=== PATIENT | female | born 1970 | race African-American/Black ===

== ENCOUNTER 2025-01-11 15:26 | Inpatient (IN) | payer OTHER ==
[~2025-01-11] VITALS: Ht 160 cm; Wt 88.5 kg
--- NOTE | 2025-01-11 15:35 | ECG ---
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
--- NOTE | 2025-01-11 15:36 | ED.PDOC ---
HPI Comments lively: HPI: Poor Historian. Patient points to her left mid axillary line chest discomfort wrapping around the ribcage and under her left breast. Pain was sudden constant. No significant associated symptoms. Past Medical History: Past Surgical History: 54y F who presents to the ED for chief complaint of chest pain - pt states she has been having chest pain for the past 1x hours - pt states she has been having L sided chest pain radiating to the L lower zeus k, with associated nausea and no exacerbating or relieving factors - pt states the pain came on suddenly and states she was resting when the pain started - pt denies any associated injury or fall and denies any chest pain symptoms - pt states she exercises daily but states she was exercising more heavily today - pt states she had normal cardiac stress test 2 years prior when she 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 HEAD: Denies acute: headache, photophobia Eyes: Denies acute: Double vision, vision loss, eye pain, eye discharge. EARS: Denies acute: tinnitus, hearing loss, ear discharge, ear pain, THROAT: Denies acute: sore throat, swelling, difficulty swallowing , pain with swallo wing, change in voice. NECK: Denies acute: neck pain, neck swelling, stiff neck. HEART: Denies acute : , palpitations, LUNGS: Denies acute: SOB, wheezing, cough, hemoptysis ABDOMEN: Denies acute: abdominal pain, Nausea, Vomiting, diarrhea, melena , hematemesis, hematochezia SKIN: Denies acute: rash, redness, lesions, itchiness. EXTREMITIES: Denies acute: calf pain, numbness, tingling, weakness, denies pain in extremity. Denies acute: Low back pain. Neuro: Denies acute: focal neurological deficit, motor or sensory focal neurological deficit, tremors, seizure like activity, confusion, dizziness, change in mental status, loss of bowel or bladder function, cauda equina like symptoms. : Denies acute: dysuria, hematuria, flank pain, increase in urinary frequency. PSYCH: Denies acute: hallucination, suicidal ideation, homicidal ideation. FEMALE: Denies acute: abnormal vaginal bleeding, foul odor, unusual discharge. PHYSICAL EXAM: General: ----mild to moderate----acute distress, awake and alert. Head: normocephalic, atraumatic. Neck: supple, trachea is midline, no swelling. Throat: Normal phonation. Eyes:, no erythema, no purulent discharge, no proptosis, no icterus. Heart: regular rate, regular rhythm, no significant murmur appreciated. Lungs: no apparent respiratory distress, Able to speak in full sentences. No wheezing, no rhonchi, no crackles. No stridors Clear to auscultation bilaterally. Abdomen: non tender to palpation, non distended, soft, no guarding, no rebound, + bowel sounds. Patient of the area of pain. Patient points specifically to her posterior midthoracic area on the left side of her ribcage wrapping around to her left mid axillary line. There is no swelling or crepitus appreciated not exam. No significant tenderness to palpation in that area. She states that the pain she feels is inside. Neuro: Awake, Alert, oriented to name, self, situation, follows commands GCS=15. Speech is normal. Skin: no petechia, no purpura, no cyanosis, non-pale, not jaundice. Lower extremities: --no - Pitting edema no deformity, no focal swelling, no calf TTP. Makes eye contact. moves all four extremities. Face: no apparent facial droop. Ambulating in the ED independently. ED COURSE: DISCLAIMER: This medical document was created using an electronic medical record system with voice recognition software and computerized dictation system. Although this document has been carefully reviewed, there might still be some phonetic and typographical errors. Occasional wrong-word or "sound-alike" substitutions may have occurred due to the inherent limitations of voice recognition software. These areas are purely typographical due to imperfections of the software programs and do not reflect any compromise in the patient's medical care. Please read the chart carefully and recognize, using context, where these substitutions have occurred. Time Seen by MD: 15:28 Reviewed Notes: Medications, Allergies Allergies: Coded Allergies: [place] (Verified Allergy, Unknown, 01/11/25) Information Source: Patient Mode of Arrival: Ambulatory EKG EKG : Pulse Rate (adult): 92 [place]: Normal Cardiac Rhythm: NSR Block: None Hypertrophy: None ST: Normal Was a procedure done? Was a procedure done?: No X-Ray, Labs, Meds, VS Vital Signs Date Time Temp Pulse Resp B/P (MAP) Pulse Ox O2 Delivery O2 Flow Rate FiO2 01/11/25 17:10 65 01/11/25 16:45 65 20 96 Room Air* 0 21 01/11/25 16:37 87 01/11/25 16:31 131/91 01/11/25 16:26 92 01/11/25 16:20 98.1 77 18 131/91 (104) 97 98.1 01/11/25 16:20 77 01/11/25 15:33 92 01/11/25 15:30 98.3 93 18 144/90 (108) 100 98.3 Lab Test 01/11/25 17:07 01/11/25 16:45 01/11/25 15:38 01/11/25 15:34 Range/Units B-Type Natriuretic Peptide 11.60 0-100 pg/mL Troponin I High Sensitivity 8 8 </=34 ng/L Urine Color Light-yellow Yellow Urine Clarity Clear Clear Urine pH 6.5 5.0-9.0 Urine Specific [place] 1.014 1.001-1.035 Urine Protein Negative Negative Urine Ketones Negative Negative Urine Blood Negative Negative /uL Urine Nitrite Negative Negative Urine Bilirubin Negative Negative Urine Urobilinogen Normal Negative mg/dL Urine Leukocyte Esterase Negative Negative /uL Urine RBC 1 0 - 4 /hpf Urine Microscopic WBC 1 0-5 /HPF Urine Squamous Epithelial Cells Few <5 /hpf Urine Bacteria Few H None Seen /hpf Urine Glucose Normal Normal mg/dL Urine Opiates Screen Neg NEGATIVE Urine Fentanyl Screen Neg NEGATIVE Urine Barbiturates Screen Neg NEGATIVE Urine Phencyclidine Screen Neg NEGATIVE Urine Amphetamines Screen Neg NEGATIVE Urine Benzodiazepines Screen Neg NEGATIVE Urine Cocaine Screen Neg NEGATIVE Urine Cannabinoids Screen Neg NEGATIVE White Blood Count 9.5 4.4-10.8 10^3/uL Red Blood Count 4.33 4.0-5.20 10^6/uL Hemoglobin 13.3 12.2-16.2 g/dL Hematocrit 39.7 36.0-46.0 % Mean Corpuscular Volume 91.7 80.0-100.0 fL Mean Corpuscular Hemoglobin 30.7 28.0-32.0 pg Mean Corpuscular Hemoglobin Concent 33.4 32.0-36.0 g/dL Red Cell Distribution Width 13.6 11.8-14.3 % Platelet Count 359 140-450 10^3/uL Mean Platelet Volume 6.9 6.9-10.8 fL Neutrophils (%) (Auto) 46.9 37.0-80.0 % Lymphocytes (%) (Auto) 41.6 10.0-50.0 % Monocytes (%) (Auto) 9.4 0.0-12.0 % Eosinophils (%) (Auto) 1.0 0.0-7.0 % Basophils (%) (Auto) 1.1 0.0-2.0 % Neutrophils # (Auto) 4.4 1.6-8.6 10 ^3/uL Lymphocytes # (Auto) 3.9 0.4-5.4 10 ^3/uL Monocytes # (Auto) 0.9 0-1.3 10 ^3/uL Eosinophils # (Auto) 0.1 0-0.8 10 ^3/uL Basophils # (Auto) 0.1 0-0.2 10 ^3/uL Nucleated Red Blood Cells 0.2 % D-Dimer, Quantitative 0.20 0.0-0.49 mg/L FEU Sodium Level 144 136-145 mmol/L Potassium Level 3.9 3.5-5.1 mmol/L Chloride Level 108 H 98-107 mmol/L Carbon Dioxide Level 25 20-31 mmol/L Anion Gap 11 5-15 Blood Urea Nitrogen 18 9-23 mg/dL Creatinine 0.94 0.550-1.02 mg/dL Glomerular Filtration Rate Calc 71 >90 mL/min BUN/Creatinine Ratio 19.1 10.0-20.0 Serum Glucose 80 74-106 mg/dL Calcium Level 10.9 H 8.7-10.4 mg/dL Total Bilirubin 0.5 0.2-1.0 mg/dL Aspartate Amino Transferase (AST) 18 <34 U/L Alanine Aminotransferase (ALT) 9 7-40 U/L Alkaline Phosphatase 61 46-116 U/L Creatine Kinase 135 34-145 U/L Total Protein 7.5 5.7-8.2 g/dL Albumin 4.8 3.2-4.8 g/dL Current Medications Medications (Trade) Dose Ordered Sig/[place] Route Start Time Stop Time Status Last Admin Aspirin 325 mg ONCE ONCE PO 01/11/25 15:45 01/11/25 15:46 DC 01/11/25 16:31 Nitroglycerin (Ntrostat Sublingual) 0.4 mg ONCE ONCE SL 01/11/25 15:45 01/11/25 15:46 DC 01/11/25 16:31 Sodium Chloride 1,000 ml @ 1,000 mls/hr Q1H ONCE IV 01/11/25 16:15 01/11/25 17:14 DC 01/11/25 16:32 Furosemide (Lasix Injection) 40 mg ONCE ONCE IV 01/11/25 17:15 01/11/25 18:11 DC 01/11/25 18:43 [place] [id number] Ph: [phone] DIAGNOSTIC IMAGING Diagnostic Imaging Report : [id number] Signed PATIENT: PAOLA WHITECCT: [id number] UNIT: [id number] : 1970 LOC: ER ROOM / BED: / AGE / SEX: 54 / F ADM STATUS: REG ER SERVICE [id number] ORDERING PHYSICIAN: MERLINE HERNANDEZ DO PROCEDURE(s): CXRP - CHEST PORTABLE REASON: L cp, ORDER NUMBER(s): [id number], ACCESSION NUMBER(s): [id number] EXAM: XY CHEST PORTABLE CLINICAL HISTORY: L cp, TECHNIQUE: Single AP view of the chest WID: COMPARISON: None FINDINGS: Lines and tubes: None Chest: Mild cardiomegaly. Mild prominence of the central pulmonary vasculature.. Calcified plaque projects over the aortic arch. No pleural effusion, pneumothorax, or consolidation. The osseous structures are grossly intact. IMPRESSION: Mild cardiomegaly with mild prominence of the central pulmonary vasculature. ATED BY: MORIAH ROMEO MD DICTATED DATE/TIME: 01/11/25 1620 SIGNED BY: MORIAH ROMEO MD SIGNED DATE/TIME: 01/11/25 1620 CC: Patient Education/Counseling: Diagnosis, Treatment Family Education/Counseling: No Family Present Departure 1 Departure Time of Disposition: 17:14 Impression: Primary Impression: Chest pain Additional Impression: Pulmonary vascular congestion Disposition: ADMITTED INPATIENT Admit to: Tele Condition: Guarded Discharged With: Self Critical Care Note Critical Care Time?: No Heart Score Heart Score: Heart Score Response (Comments) Value History Slightly Suspicious 0 EKG Normal 0 Age 45-64 1 Risk Factors No known risk factors 0 Total 1 I personally scribed for MERLINE HERNANDEZ DO ([email or web address]) on 01/11/25 at 15:36. Electronically submitted by Jess Wells ([facility] [employer] I personally scribed for MERLINE HERNANDEZ DO ([email or web address]) on 01/11/25 at 16:26. Electronically submitted by Jess Wells ([facility] [employer]). I personally scribed for MERLINE HERNANDEZ DO (DVFARMI) on 01/11/25 at 21:50. Electronically submitted by Jess Wells ([employer]). MERLINE HERNANDEZ DO Jan 11, 2025 15:36
[2025-01-11 15:54] LABS: Basophils # (auto) 0.1 10 ^3/uL (0-0.2); Basophils % (auto) 1.1 % (0.0-2.0); Eosinophils # (auto) 0.1 10 ^3/uL (0-0.8); Hematocrit 39.7 % (36.0-46.0); Hemoglobin 13.3 g/dL (12.2-16.2); Lymphocytes # (auto) 3.9 10 ^3/uL (0.4-5.4); Lymphocytes % (auto) 41.6 % (10.0-50.0); Mean Corpuscular Hemoglobin 30.7 pg (28.0-32.0); Mean Corpuscular Hgb Conc. 33.4 g/dL (32.0-36.0); Mean Corpuscular Volume 91.7 fL (80.0-100.0); Monocytes # (auto) 0.9 10 ^3/uL (0-1.3); Monocytes % (auto) 9.4 % (0.0-12.0); Neutrophils # (auto) 4.4 10 ^3/uL (1.6-8.6); Neutrophils % (auto) 46.9 % (37.0-80.0); Nucleated Red Blood Cells % 0.2 %; Platelet Count (auto) 359 10^3/uL (140-450); Red Blood Cells 4.33 10^6/uL (4.0-5.20); Red Cell Distribution Width 13.6 % (11.8-14.3); White Blood Cell 9.5 10^3/uL (4.4-10.8)
[2025-01-11 16:12] LABS: Alkaline Phosphatase 61 U/L (46-116); Anion Gap 11 (5-15); Aspartate Aminotransferase 18 U/L (<34); BUN/Creatinine Ratio 19.1 (10.0-20.0); Blood Urea Nitrogen 18 mg/dL (9-23); Carbon Dioxide 25 mmol/L (20-31); Creatine Kinase IFCC 135 U/L (34-145); Glucose 80 mg/dL (74-106); Potassium 3.9 mmol/L (3.5-5.1); Sodium 144 mmol/L (136-145); Total Protein 7.5 g/dL (5.7-8.2)
[2025-01-11 16:13] LABS: Bilirubin, Total 0.5 mg/dL (0.2-1.0)
[2025-01-11 16:14] LABS: Alanine Aminotransferase 9 U/L (7-40); Albumin 4.8 g/dL (3.2-4.8); Calcium 10.9 mg/dL (8.7-10.4); Chloride 108 mmol/L (98-107)
--- NOTE | 2025-01-11 16:23 | DVH ---
EXAM: XY CHEST PORTABLE CLINICAL HISTORY: L cp, TECHNIQUE: Single AP view of the chest WID: COMPARISON: None FINDINGS: Lines and tubes: None Chest: Mild cardiomegaly. Mild prominence of the central pulmonary vasculature.. Calcified plaque projects o roberto carlos the aortic arch. No pleural effusion, pneumothorax, or consolidation. The osseous structures are grossly intact. IMPRESSION: Mild cardiomegaly with mild prominence of the central pulmonary vasculature.
[2025-01-11 16:30] LABS: Urine Bacteria FEW /hpf (None Seen); Urine Blood Negative /uL (Negative); Urine Clarity Clear (Clear); Urine Color Light-Yellow (Yellow); Urine Protein, UAD Negative (Negative); Urine Specific Gravity 1.014 (1.001-1.035); Urine Squamous Epithelial Cell FEW /hpf (<5); Urine Urobilinogen Normal (Negative); Urine WBC 1 /HPF (0-5); Urine pH 6.5 (5.0-9.0)
[2025-01-11] MEDS: NITROGLYCERIN 0.4 MG SL TAB SL ONE (16:31)
[2025-01-11] MEDS: ASPirin 325 MG TAB PO ONE (16:31)
[2025-01-11] MEDS: SODIUM CHLORIDE 0.9% 1,000 ML IV ONE (16:32)
[2025-01-11 16:42] LABS: Amphetamine Screen, Urine Neg (NEGATIVE); Barbiturate Scree,Urine Neg (NEGATIVE); Benzodiazephine Screen, Urine Neg (NEGATIVE); Cannabinoid Screen, Urine Neg (NEGATIVE); Cocaine Screen, Urine Neg (NEGATIVE); Opiate Scree,Urine Neg (NEGATIVE); Phencyclidine Screen, Urine Neg (NEGATIVE)
[2025-01-11 16:45] VITALS: PULSE 65; RESP 20; O2SAT 96
[2025-01-11] MEDS ORDERED: ACETAMINOPHEN 325 MG TAB PO PRN (18:00)
[2025-01-11] MEDS ORDERED: MORPHINE SULFATE INJ 2 MG/ml SYRG IV PRN (18:00)
[2025-01-11] MEDS ORDERED: NITROGLYCERIN 0.4 MG SL TAB SL PRN (18:00)
[2025-01-11] MEDS ORDERED: ONDANSETRON HCL 4 MG/2 ML VIAL IV PRN (18:00)
--- NOTE | 2025-01-11 18:20 | DVHHP2 ---
History of Present Illness Reason for Visit: Chest pain History of Present Illness This is a 54-year-old female with left mid axillary line chest discomfort wrapping around the ribcage and under her left breast associated with shortness of breaths that occurred suddenly and constant this morning. She states that chest pain has been going on for one week but did not think anything of it until this morning when the pain was constant and different in nature. This prompted her to come to the emergency room for further evaluation and treatment. She denied having recent injury or trauma to her chest but does state recent life stressors that have increased. She states not experiencing this in the past and is not under any care of technician's helper, states regular exercise daily. She denies consumption of energy drinks and illicit drug use. The patient is concerned about her symptoms and would like to be further evaluated and treated. The patient will be admitted under hospitalist care to the telemetry unit for further evaluation and treatment. The patient denies headache, fever, chills, changes in vision, nausea, vomiting, abdominal pain, diarrhea, constipation and other associated symptoms. The plan has been discussed with the patient in which all questions concerns have been addressed. Past Surgical History: Tubal Ligation Family History: None Smoke: No ALCOHOL: none Drugs: None Lives: with Family Domestic Violence: Neg Review of Systems Respiratory: Shortness of breath Cardiovascular: Chest Pain Allergies: Coded Allergies: [place] (Verified Allergy, Unknown, 01/11/25) Exam Vital Signs Vital Signs Date Time Temp Pulse Resp B/P (MAP) Pulse Ox O2 Delivery O2 Flow Rate FiO2 01/11/25 16:45 65 20 96 Room Air* 0 21 01/11/25 16:31 131/91 01/11/25 16:20 98.1 98.1 General Appearance: Alert, Oriented X3, Cooperative, mild distress (Tearful while doing examination) HEENT: Atraumatic, PERRLA, Mucous membr. moist/pink Respiratory: Clear to auscultation, Normal air movement Cardiovascular: Normal S1, Normal S2, No murmurs Abdominal: Normal bowel sounds, Soft, No tenderness, No hepatospenomegaly, No masses Extremities: No clubbing, No cyanosis, No edema, Normal pulses, No tenderness/swelling Skin: No rashes, No breakdown Neuro: Normal gait, Normal speech, Strength at 5/5 X4 ext, Normal tone, Sensation intact, Cranial nerves 3-12 NL, Reflexes 2+ Psych/Mental Status: Mental status NL, Mood NL Labs/Xrays Labs Test 01/11/25 17:07 01/11/25 16:45 01/11/25 15:38 01/11/25 15:34 Range/Units B-Type Natriuretic Peptide 11.60 0-100 pg/mL Troponin I High Sensitivity 8 </=34 ng/L Urine Color Light-yellow Yellow Urine Clarity Clear Clear Urine pH 6.5 5.0-9.0 Urine Specific [place] 1.014 1.001-1.035 Urine Protein Negative Negative Urine Ketones Negative Negative Urine Blood Negative Negative /uL Urine Nitrite Negative Negative Urine Bilirubin Negative Negative Urine Urobilinogen Normal Negative mg/dL Urine Leukocyte Esterase Negative Negative /uL Urine RBC 1 0 - 4 /hpf Urine Microscopic WBC 1 0-5 /HPF Urine Squamous Epithelial Cells Few <5 /hpf Urine Bacteria Few H None Seen /hpf Urine Glucose Normal Normal mg/dL Urine Opiates Screen Neg NEGATIVE Urine Fentanyl Screen Neg NEGATIVE Urine Barbiturates Screen Neg NEGATIVE Urine Phencyclidine Screen Neg NEGATIVE Urine Amphetamines Screen Neg NEGATIVE Urine Benzodiazepines Screen Neg NEGATIVE Urine Cocaine Screen Neg NEGATIVE Urine Cannabinoids Screen Neg NEGATIVE White Blood Count 9.5 4.4-10.8 10^3/uL Red Blood Count 4.33 4.0-5.20 10^6/uL Hemoglobin 13.3 12.2-16.2 g/dL Hematocrit 39.7 36.0-46.0 % Mean Corpuscular Volume 91.7 80.0-100.0 fL Mean Corpuscular Hemoglobin 30.7 28.0-32.0 pg Mean Corpuscular Hemoglobin Concent 33.4 32.0-36.0 g/dL Red Cell Distribution Width 13.6 11.8-14.3 % Platelet Count 359 140-450 10^3/uL Mean Platelet Volume 6.9 6.9-10.8 fL Neutrophils (%) (Auto) 46.9 37.0-80.0 % Lymphocytes (%) (Auto) 41.6 10.0-50.0 % Monocytes (%) (Auto) 9.4 0.0-12.0 % Eosinophils (%) (Auto) 1.0 0.0-7.0 % Basophils (%) (Auto) 1.1 0.0-2.0 % Neutrophils # (Auto) 4.4 1.6-8.6 10 ^3/uL Lymphocytes # (Auto) 3.9 0.4-5.4 10 ^3/uL Monocytes # (Auto) 0.9 0-1.3 10 ^3/uL Eosinophils # (Auto) 0.1 0-0.8 10 ^3/uL Basophils # (Auto) 0.1 0-0.2 10 ^3/uL Nucleated Red Blood Cells 0.2 % Sodium Level 144 136-145 mmol/L Potassium Level 3.9 3.5-5.1 mmol/L Chloride Level 108 H 98-107 mmol/L Carbon Dioxide Level 25 20-31 mmol/L Anion Gap 11 5-15 Blood Urea Nitrogen 18 9-23 mg/dL Creatinine 0.94 0.550-1.02 mg/dL Glomerular Filtration Rate Calc 71 >90 mL/min BUN/Creatinine Ratio 19.1 10.0-20.0 Serum Glucose 80 74-106 mg/dL Calcium Level 10.9 H 8.7-10.4 mg/dL Total Bilirubin 0.5 0.2-1.0 mg/dL Aspartate Amino Transferase (AST) 18 <34 U/L Alanine Aminotransferase (ALT) 9 7-40 U/L Alkaline Phosphatase 61 46-116 U/L Creatine Kinase 135 34-145 U/L Total Protein 7.5 5.7-8.2 g/dL Albumin 4.8 3.2-4.8 g/dL ORDERING PHYSICIAN: MERLINE HERNANDEZ DO PROCEDURE(s): CXRP - CHEST PORTABLE REASON: L , ORDER NUMBER(s): [id number], ACCESSION NUMBER(s): [id number] EXAM: XY CHEST PORTABLE CLINICAL HISTORY: L cp, TECHNIQUE: Single AP view of the chest WID: COMPARISON: None FINDINGS: Lines and tubes: None Chest: Mild cardiomegaly. Mild prominence of the central pulmonary vasculature.. Calcified plaque projects over the aortic arch. No pleural effusion, pneumothorax, or consolidation. The osseous structures are grossly intact. IMPRESSION: Mild cardiomegaly with mild prominence of the central pulmonary vasculature. ATED BY: MORIAH ROMEO MD DICTATED DATE/TIME: 01/11/25 1620 SIGNED BY: MORIAH ROMEO MD SIGNED DATE/TIME: 01/11/251619 Assessment/Plan Assessment/Plan Chest pain---patient presents to ED with chief complaint of left mid axillary line chest discomfort wrapping around the ribcage and under her left breast that progressively got worse today Patient reports chest discomfort x1 week, denies chest trauma or injury, no illicit drug use and no caffeine intake Reports recent life stressors No prior history of these symptoms Reports exercise daily Admit to telemetry unit for continuous monitoring ACS protocol Reviewed CBC which is normal Reviewed BMP which is normal BNP is normal Cardiac enzyme negative x2 Tox screen is negative Urinalysis is negative Reviewed chest x-ray which shows mild cardiomegaly Aspirin daily Echocardiogram pending We will consider to consult technician's helper if further evaluation and recommendation are needed Reconcile home medication DVT prophylaxis PUD prophylaxis not indicated no history of GERD Labs in a.m. Discussed plan of care with the patient in which all questions concerns have been addressed Plan discussed with: Patient Date of Service: Jan 11, 2025 Billing Provider: REJI JOHNSON Common Visit Codes: [id number] INP/OBS CARE (HIGH) REJI JOHNSON Jan 11, 2025 18:20
--- NOTE | 2025-01-11 18:28 | ECG ---
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
[2025-01-11] MEDS: FUROSEMIDE 40 MG/4 ML VIAL IV ONE (18:43)
[2025-01-11 19:26] VITALS: PULSE 86; RESP 25; O2SAT 97
[2025-01-11 23:47] VITALS: BP 140/87; PULSE 62; RESP 15; TEMP 97.9; O2SAT 99
[2025-01-12] VITALS (8 sets, daily range): BP systolic 108–135; BP diastolic 66–84; PULSE 55–97; RESP 14–20; TEMP 96.9–98.3; O2SAT 96–100
[2025-01-12 06:43] LABS: Basophils # (auto) 0.1 10 ^3/uL (0-0.2); Basophils % (auto) 1.2 % (0.0-2.0); Eosinophils # (auto) 0.1 10 ^3/uL (0-0.8); Eosinophils % (auto) 1.5 % (0.0-7.0); Hematocrit 38.1 % (36.0-46.0); Hemoglobin 13.1 g/dL (12.2-16.2); Lymphocytes % (auto) 43.4 % (10.0-50.0); Mean Corpuscular Hemoglobin 30.6 pg (28.0-32.0); Mean Corpuscular Hgb Conc. 34.4 g/dL (32.0-36.0); Mean Corpuscular Volume 88.9 fL (80.0-100.0); Monocytes # (auto) 0.8 10 ^3/uL (0-1.3); Monocytes % (auto) 11.3 % (0.0-12.0); Neutrophils % (auto) 42.6 % (37.0-80.0); Nucleated Red Blood Cells % 0.2 %; Platelet Count (auto) 339 10^3/uL (140-450); Red Blood Cells 4.28 10^6/uL (4.0-5.20); Red Cell Distribution Width 13.2 % (11.8-14.3)
[2025-01-12 06:45] LABS: Alanine Aminotransferase 10 U/L (7-40); Albumin 4.5 g/dL (3.2-4.8); Alkaline Phosphatase 56 U/L (46-116); Anion Gap 9 (5-15); Aspartate Aminotransferase 15 U/L (<34); BUN/Creatinine Ratio 15.1 (10.0-20.0); Blood Urea Nitrogen 13 mg/dL (9-23); Calcium 10.3 mg/dL (8.7-10.4); Carbon Dioxide 27 mmol/L (20-31); Glucose 89 mg/dL (74-106); Potassium 4.3 mmol/L (3.5-5.1); Sodium 145 mmol/L (136-145); Total Protein 7.3 g/dL (5.7-8.2)
[2025-01-12 06:46] LABS: Bilirubin, Total 0.7 mg/dL (0.2-1.0)
[2025-01-12 06:47] LABS: Chloride 109 mmol/L (98-107)
[2025-01-12] MEDS: ENOXAPARIN SOD 40 MG/0.4 ML SYRINGE SC SCH (10:00)
[2025-01-12] MEDS: ASPirin 81 mg TAB PO SCH (10:47)
--- NOTE | 2025-01-12 11:50 | DVHSR ---
APPROVED REPORT EXAM: Two-dimensional and M-mode echocardiogram with Doppler and color Doppler. Blood Pressure: 109/67 mmHg INDICATION Chest Pain RISK FACTORS Height: 5' 3", Weight: 192 DIMENSIONS LVDd3.8 (3.8-5.7cm)LA (2D)3.6 (1.9-4.0cm)Aortic Root2.9 (2.0-3.7cm) LVDs2.6 (2.5-4.0cm)LA (MM) (1.9-4.0cm)Aortic Cusp Exc1.8 (1.5-2.0cm) EF (%) 60.0 (55-70%)Rt. Atrium3.7 (1.9-4.0cm)Asc. Aorta cm IVSd1.1 (0.7-1.1cm)RV (D) (1.8-2.4cm) PWd1.1 (0.7-1.1cm) Mitral Valve MitralMitral Stenosis E wave0.80m/sMV Mean GR.mmHg A wave0.90m/sMV Peak GR.mmHg E/A ratio0.92D MVAcm2 Aortic Valve Aortic ValveAortic Stenosis V10.80m/Saundra Mean GR.4mmHg V21.40m/[place]und[place] Peak GR.8mmHg LVOT Diameter2.2 (1.8-2.4cm)Doppler AVA2.17cm2 Pulmonic Valve V20.60m/s Tricuspid Valve TR Velocity2.40m/s [id number] Other Information Quality : Technically LimitedRhythm : Conclusion LVEF 50-55%, RV size and function normal No significant valve disease
--- NOTE | 2025-01-12 12:07 | DVHPNRES ---
Progress Note Date Seen: Jan 12, 2025 Resident Creating Document: CARMEL BARKER CLARA Has the PT tested + for MRSA If YES, has PT been informed?: No Medical Necessity Reason Pt with a Central, PICC or Fol: No Subjective Review of Systems This is a 54-year-old female with left mid axillary line chest discomfort wrapping around the ribcage and under her left breast associated with shortness of breaths that occurred suddenly and constantly this morning. She states that chest pain has been going on for one week but did not think anything of it until this morning when the pain was constant and different in nature. This prompted her to come to the emergency room for further evaluation and treatment. She denied having recent injury or trauma to her chest but does state recent life stressors that have increased. 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 She denies consumption of energy drinks and illicit drug use. The patient is concerned about her symptoms and would like to be further evaluated and treated. The patient will be admitted under hospitalist care to the telemetry unit for further evaluation and treatment. The patient denies headache, fever, chills, changes in vision, nausea, vomiting, abdominal pain, diarrhea, constipation and other associated symptoms. The plan has been discussed with the patient in which all questions concerns have been addressed. Patient seen and examined at the bedside. Patient is still complaining of mild chest pain. Patient reports: No new complaints, Feels better Changes from previous H/P or p: Changes Objective vital signs Vital Sign Date Time Temp Pulse Resp B/P (MAP) Pulse Ox O2 Delivery O2 Flow Rate FiO2 01/12/25 09:00 97.0 70 20 135/84 (101) 96 97.0 01/11/25 23:47 Room Air* 0 21 Total Intake and Output 01/11/25 01/11/25 01/12/25 15:00 23:00 07:00 Intake Total 250 ml Balance 250 ml medications Current Medications Medications Dose Ordered Sig/[place] Route Start Time Stop Time Status Last Admin Dose Admin Aspirin 81 mg DAILY PO 01/12/25 10:00 01/12/25 10:47 81 MG Ondansetron HCl 4 mg Q4HP PRN IV 01/11/25 18:00 Enoxaparin Sodium 40 mg DAILY SC 01/12/25 10:00 Acetaminophen 650 mg Q6HP PRN PO 01/11/25 18:00 Nitroglycerin 0.4 mg Q5MINP PRN SL 01/11/25 18:00 Morphine Sulfate 2 mg Q30M PRN IV 01/11/25 18:00 Examination General Appearance: Alert, Oriented X3, Cooperative, No acute distress HEENT: Atraumatic, PERRLA, EOMI, Mucous membrane moist/pink Respiratory: Clear to auscultation, Normal air movement Cardiovascular: Regular rate, Normal S1, Normal S2, No murmurs, no chest wall tenderness Abdominal: Normal bowel sounds, Soft, No tenderness, No hepatosplenomegaly, No masses Extremities: No clubbing, No cyanosis, No edema, Normal pulses, No tenderness/swelling Skin: No rashes, No breakdown, No significant lesion Neuro: Normal gait, Normal speech, Strength at 5/5 X4 ext, Normal tone, Sensation intact, Cranial nerves 3-12 NL, Reflexes 2+ Psych/Mental Status: Mental status NL, Mood NL laboratory and microbiology Laboratory Tests 01/12/25 05:58 Test 01/12/25 05:58 Range/Units Serum Glucose 89 74-106 mg/dL Labs and/or images reviewed: Labs reviewed by me, Image(s) reviewed by me Problem List/Assessment/Plan Problem List/Assessment/Plan Chest pain, possible cardiac Dyslipidemia Obesity Hypertension * EKGs shows, diffuse ST-depression * Echocardiogram shows, normal LVEF with a significant with the disease * Serial trop I and BNP is within normal limits * Chest x-ray shows cardiomegaly with lower zone bilateral infiltration Plan/recommendation * Aspirin * Atorvastatin * Pain management * Telemetry monitoring DIET: Cardiac diet DVT PROPHYLAXIS: Lovenox GI PROPHYLAXIS: Protonix CODE STATUS: Goal of care discussed for 20 minutes, full code DISPOSITION: Telemetry Patient's status and plan discussed with the patient. Case discussed with Dr. Pruitt. Plan discussed with: Patient, Spouse, Other (RN) Addendum Addendum Addendum I was physically present for the smith portions of the service provided to patient by THE RESIDENT. I have reviewed the documentation, discussed the case with resident and agree with the resident's documentation except as noted. Also the patient's clinical case was discussed with the patient's nurse. This medical document was created using an electronic medical record system with computerized dictation system. Although this document has been carefully reviewed, there might still be some phonetic and typographical errors. These areas are purely typographical due to imperfections of the software programs, and do not reflect any compromise in the patient's medical care. Late signature. Date of Service: Jan 12, 2025 Billing Provider: IZABELLA PRUITT MD Common Visit Codes: 59340-[id number] INP/OBS CARE(HIGH) Secondary Visit Codes: 81512-[id number] CARE PLAN 30 MINUTES (20 minutes) CARMEL BARKER RESJERRICA Jan 12, 2025 12:07 IZABELLA PRUITT MD Jan 13, 2025 15:46
[2025-01-13 01:00] VITALS: BP 103/66; PULSE 58; RESP 17; TEMP 97.6; O2SAT 99
[2025-01-13 05:00] VITALS: BP 116/83; PULSE 68; RESP 17; TEMP 97.8; O2SAT 97
[2025-01-13 07:28] LABS: Anion Gap 10 (5-15); Carbon Dioxide 26 mmol/L (20-31); Potassium 4.1 mmol/L (3.5-5.1); Sodium 144 mmol/L (136-145)
[2025-01-13 07:29] LABS: Calcium 10.3 mg/dL (8.7-10.4)
[2025-01-13 07:31] LABS: Basophils # (auto) 0.1 10 ^3/uL (0-0.2); Basophils % (auto) 1.1 % (0.0-2.0); Eosinophils # (auto) 0.1 10 ^3/uL (0-0.8); Eosinophils % (auto) 1.6 % (0.0-7.0); Hematocrit 36.7 % (36.0-46.0); Hemoglobin 12.9 g/dL (12.2-16.2); Lymphocytes # (auto) 2.6 10 ^3/uL (0.4-5.4); Lymphocytes % (auto) 47.5 % (10.0-50.0); Mean Corpuscular Volume 88.6 fL (80.0-100.0); Monocytes # (auto) 0.6 10 ^3/uL (0-1.3); Monocytes % (auto) 10.8 % (0.0-12.0); Neutrophils # (auto) 2.1 10 ^3/uL (1.6-8.6); Platelet Count (auto) 337 10^3/uL (140-450); Red Blood Cells 4.15 10^6/uL (4.0-5.20); Red Cell Distribution Width 13.1 % (11.8-14.3); White Blood Cell 5.5 10^3/uL (4.4-10.8)
[2025-01-13 07:32] LABS: Chloride 108 mmol/L (98-107)
[2025-01-13 07:33] LABS: Glucose 83 mg/dL (74-106)
[2025-01-13 07:34] LABS: BUN/Creatinine Ratio 20.5 (10.0-20.0); Blood Urea Nitrogen 17 mg/dL (9-23)
[2025-01-13 08:00] VITALS: PULSE 64; RESP 18
--- NOTE | 2025-01-13 12:12 | DVHPN2 ---
Cardiovascular: Chest Pain Respiratory: Shortness of breath Objective Vitals Vital Signs Date Time Temp Pulse Resp B/P (MAP) Pulse Ox O2 Delivery O2 Flow Rate FiO2 01/13/25 05:00 97.8 68 17 116/83 (94) 97 97.8 01/12/25 20:00 Room Air* 0 21 Intake/Output Intake and Output 01/13/25 07:00 Intake Total 1540 ml Balance 1540 ml Intake Oral 1540 ml # Voids 8 Medications Current Medications Medications Dose Ordered Sig/[place] Route Start Time Stop Time Status Last Admin Dose Admin Aspirin 81 mg DAILY PO 01/12/25 10:00 01/13/25 10:31 81 MG Ondansetron HCl 4 mg Q4HP PRN IV 01/11/25 18:00 Enoxaparin Sodium 40 mg DAILY SC 01/12/25 10:00 Acetaminophen 650 mg Q6HP PRN PO 01/11/25 18:00 Nitroglycerin 0.4 mg Q5MINP PRN SL 01/11/25 18:00 Morphine Sulfate 2 mg Q30M PRN IV 01/11/25 18:00 Laboratory Results Laboratory Tests 01/13/25 05:32 Chemistry Test 01/13/25 05:32 Calcium Level 10.3 mg/dL (8.7-10.4) Urinalysis Test 01/11/25 15:38 Urine Color Light-yellow (Yellow) Urine Clarity Clear (Clear) Urine pH 6.5 (5.0-9.0) Urine Specific [place] 1.014 (1.001-1.035) Urine Protein Negative (Negative) Urine Ketones Negative (Negative) Urine Blood Negative /uL (Negative) Urine Nitrite Negative (Negative) Urine Bilirubin Negative (Negative) Urine Urobilinogen Normal mg/dL (Negative) Urine Leukocyte Esterase Negative /uL (Negative) Urine RBC 1 /hpf (0 - 4) Urine Microscopic WBC 1 /HPF (0-5) Urine Squamous Epithelial Cells Few /hpf (<5) Urine Bacteria Few /hpf (None Seen) H Urine Glucose Normal mg/dL (Normal) CHRISTA SANCHEZ MD Jan 13, 2025 12:12
--- NOTE | 2025-01-13 17:17 | DVHDS2 ---
Discharge Summary Date of Admission Jan 11, 2025 at 17:53 Date of Discharge: Jan 13, 2025 Labs/Diagnostic Data: Laboratory Results Test 01/13/25 05:32 01/12/25 05:58 01/11/25 18:21 01/11/25 17:07 White Blood Count 5.5 10^3/uL (4.4-10.8) Red Blood Count 4.15 10^6/uL (4.0-5.20) Hemoglobin 12.9 g/dL (12.2-16.2) Hematocrit 36.7 % (36.0-46.0) Mean Corpuscular Volume 88.6 fL (80.0-100.0) Mean Corpuscular Hemoglobin 31.0 pg (28.0-32.0) Mean Corpuscular Hemoglobin Concent 35.0 g/dL (32.0-36.0) Red Cell Distribution Width 13.1 % (11.8-14.3) Platelet Count 337 10^3/uL (140-450) Mean Platelet Volume 7.3 fL (6.9-10.8) Neutrophils (%) (Auto) 39.0 % (37.0-80.0) Lymphocytes (%) (Auto) 47.5 % (10.0-50.0) Monocytes (%) (Auto) 10.8 % (0.0-12.0) Eosinophils (%) (Auto) 1.6 % (0.0-7.0) Basophils (%) (Auto) 1.1 % (0.0-2.0) Neutrophils # (Auto) 2.1 10 ^3/uL (1.6-8.6) Lymphocytes # (Auto) 2.6 10 ^3/uL (0.4-5.4) Monocytes # (Auto) 0.6 10 ^3/uL (0-1.3) Eosinophils # (Auto) 0.1 10 ^3/uL (0-0.8) Basophils # (Auto) 0.1 10 ^3/uL (0-0.2) Nucleated Red Blood Cells 0.0 % Sodium Level 144 mmol/L (136-145) Potassium Level 4.1 mmol/L (3.5-5.1) Chloride Level 108 mmol/L (98-107) Carbon Dioxide Level 26 mmol/L (20-31) Anion Gap 10 (5-15) Blood Urea Nitrogen 17 mg/dL (9-23) Creatinine 0.83 mg/dL (0.550-1.02) Glomerular Filtration Rate Calc 83 mL/min (>90) BUN/Creatinine Ratio 20.5 (10.0-20.0) Serum Glucose 83 mg/dL (74-106) Calcium Level 10.3 mg/dL (8.7-10.4) Total Bilirubin 0.7 mg/dL (0.2-1.0) Aspartate Amino Transferase (AST) 15 U/L (<34) Alanine Aminotransferase (ALT) 10 U/L (7-40) Alkaline Phosphatase 56 U/L (46-116) Total Protein 7.3 g/dL (5.7-8.2) Albumin 4.5 g/dL (3.2-4.8) Troponin I High Sensitivity 10 ng/L (</=34) B-Type Natriuretic Peptide 11.60 pg/mL (0-100) Test 01/11/25 15:38 01/11/25 15:34 Urine Color Light-yellow (Yellow) Urine Clarity Clear (Clear) Urine pH 6.5 (5.0-9.0) Urine Specific [place] 1.014 (1.001-1.035) Urine Protein Negative (Negative) Urine Ketones Negative (Negative) Urine Blood Negative /uL (Negative) Urine Nitrite Negative (Negative) Urine Bilirubin Negative (Negative) Urine Urobilinogen Normal mg/dL (Negative) Urine Leukocyte Esterase Negative /uL (Negative) Urine RBC 1 /hpf (0 - 4) Urine Microscopic WBC 1 /HPF (0-5) Urine Squamous Epithelial Cells Few /hpf (<5) Urine Bacteria Few /hpf (None Seen) Urine Glucose Normal mg/dL (Normal) Urine Opiates Screen Neg (NEGATIVE) Urine Fentanyl Screen Neg (NEGATIVE) Urine Barbiturates Screen Neg (NEGATIVE) Urine Phencyclidine Screen Neg (NEGATIVE) Urine Amphetamines Screen Neg (NEGATIVE) Urine Benzodiazepines Screen Neg (NEGATIVE) Urine Cocaine Screen Neg (NEGATIVE) Urine Cannabinoids Screen Neg (NEGATIVE) D-Dimer, Quantitative 0.20 mg/L FEU (0.0-0.49) Creatine Kinase 135 U/L (34-145) Other Laboratory Tests 01/13/25 05:32 Final Diagnosis/Problems List chest pain Discharge Disposition: Home Discharge Instruct/Medications Diet: Cardiac 2g Na,low cholest Activity: No Restrictions, As Tolerated Follow Up/Referral: pcp 1-2 weeks cardiology per schedule Discharge Statement: "Patient was advised to return to the ER or call 911 if any headaches, dizziness, shortness of breath, chest pain, abdominal pain, bleeding, fevers, or worsening of medical condition. Patient was counseled about treatment plan, medications, possible side effects, patientverbalized understanding. All questions were answered to the best of my ability. This discharge took greater then 30 minutes in planning, reviewing documentation, counseling the patient, and discussing with other team members." ASSESSMENT ASSESSMENT Assessment chest pain CHRISTA SANCHEZ MD Jan 13, 2025 17:17
--- NOTE | 2025-01-13 19:28 | DVHCONRES ---
Date Seen: Jan 13, 2025 Resident Creating Document: CARMEL BARKER RESDIENT History of Present Illness This is a 54-year-old female with left mid axillary line chest discomfort wrapping around the ribcage and under her left breast associated with shortness of breaths that occurred suddenly and constantly this morning. She states that chest pain has been going on for one week but did not think anything of it until this morning when the pain was constant and different in nature. This prompted her to come to the emergency room for further evaluation and treatment. She denied having recent injury or trauma to her chest but does state recent life stressors that have increased. 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 She denies consumption of energy drinks and illicit drug use. The patient is concerned about her symptoms and would like to be further evaluated and treated. The patient will be admitted under hospitalist care to the telemetry unit for further evaluation and treatment. The patient denies headache, fever, chills, changes in vision, nausea, vomiting, abdominal pain, diarrhea, constipation and other associated symptoms. The plan has been discussed with the patient in which all questions concerns have been addressed. Patient seen and examined at bedside. Patient is feeling better since admission and did not have any active complaint including chest pain. Family History: Cardiovascular disease Colon cancer Allergies: Coded Allergies: [place] (Verified Allergy, Unknown, 01/11/25) Home Meds No Active Prescriptions or Reported Meds Vital Signs Vital Signs Date Time Temp Pulse Resp B/P (MAP) Pulse Ox O2 Delivery O2 Flow Rate FiO2 01/13/25 08:00 64 01/13/25 08:00 18 Room Air* 0 21 01/13/25 05:00 97.8 116/83 (94) 97 97.8 Physical Exam General Appearance: Alert, Oriented X3, Cooperative, No acute distress HEENT: Atraumatic, PERRLA, EOMI, Mucous membrane moist/pink Respiratory: Clear to auscultation, Normal air movement Cardiovascular: Regular rate, Normal S1, Normal S2, No murmurs, no chest wall tenderness Abdominal: Normal bowel sounds, Soft, No tenderness, No hepatospenomegaly, No masses Extremities: No clubbing, No cyanosis, No edema, Normal pulses, No tenderness/swelling Skin: No rashes, No breakdown, No significant lesion Neuro: Normal gait, Normal speech, Strength at 5/5 X4 ext, Normal tone, Sensation intact, Cranial nerves 3-12 NL, Reflexes 2+ Psych/Mental Status: Mental status NL, Mood NL Labs/Diagnostic Data Labs Test 01/13/25 05:32 01/12/25 05:58 01/11/25 18:21 01/11/25 17:07 Range/Units White Blood Count 5.5 4.4-10.8 10^3/uL Red Blood Count 4.15 4.0-5.20 10^6/uL Hemoglobin 12.9 12.2-16.2 g/dL Hematocrit 36.7 36.0-46.0 % Mean Corpuscular Volume 88.6 80.0-100.0 fL Mean Corpuscular Hemoglobin 31.0 28.0-32.0 pg Mean Corpuscular Hemoglobin Concent 35.0 32.0-36.0 g/dL Red Cell Distribution Width 13.1 11.8-14.3 % Platelet Count 337 140-450 10^3/uL Mean Platelet Volume 7.3 6.9-10.8 fL Neutrophils (%) (Auto) 39.0 37.0-80.0 % Lymphocytes (%) (Auto) 47.5 10.0-50.0 % Monocytes (%) (Auto) 10.8 0.0-12.0 % Eosinophils (%) (Auto) 1.6 0.0-7.0 % Basophils (%) (Auto) 1.1 0.0-2.0 % Neutrophils # (Auto) 2.1 1.6-8.6 10 ^3/uL Lymphocytes # (Auto) 2.6 0.4-5.4 10 ^3/uL Monocytes # (Auto) 0.6 0-1.3 10 ^3/uL Eosinophils # (Auto) 0.1 0-0.8 10 ^3/uL Basophils # (Auto) 0.1 0-0.2 10 ^3/uL Nucleated Red Blood Cells 0.0 % Sodium Level 144 136-145 mmol/L Potassium Level 4.1 3.5-5.1 mmol/L Chloride Level 108 H 98-107 mmol/L Carbon Dioxide Level 26 20-31 mmol/L Anion Gap 10 5-15 Blood Urea Nitrogen 17 9-23 mg/dL Creatinine 0.83 0.550-1.02 mg/dL Glomerular Filtration Rate Calc 83 >90 mL/min BUN/Creatinine Ratio 20.5 H 10.0-20.0 Serum Glucose 83 74-106 mg/dL Calcium Level 10.3 8.7-10.4 mg/dL Total Bilirubin 0.7 0.2-1.0 mg/dL Aspartate Amino Transferase (AST) 15 <34 U/L Alanine Aminotransferase (ALT) 10 7-40 U/L Alkaline Phosphatase 56 46-116 U/L Total Protein 7.3 5.7-8.2 g/dL Albumin 4.5 3.2-4.8 g/dL Troponin I High Sensitivity 10 </=34 ng/L B-Type Natriuretic Peptide 11.60 0-100 pg/mL Test 01/11/25 15:38 01/11/25 15:34 Range/Units Urine Color Light-yellow Yellow Urine Clarity Clear Clear Urine pH 6.5 5.0-9.0 Urine Specific [place] 1.014 1.001-1.035 Urine Protein Negative Negative Urine Ketones Negative Negative Urine Blood Negative Negative /uL Urine Nitrite Negative Negative Urine Bilirubin Negative Negative Urine Urobilinogen Normal Negative mg/dL Urine Leukocyte Esterase Negative Negative /uL Urine RBC 1 0 - 4 /hpf Urine Microscopic WBC 1 0-5 /HPF Urine Squamous Epithelial Cells Few <5 /hpf Urine Bacteria Few H None Seen /hpf Urine Glucose Normal Normal mg/dL Urine Opiates Screen Neg NEGATIVE Urine Fentanyl Screen Neg NEGATIVE Urine Barbiturates Screen Neg NEGATIVE Urine Phencyclidine Screen Neg NEGATIVE Urine Amphetamines Screen Neg NEGATIVE Urine Benzodiazepines Screen Neg NEGATIVE Urine Cocaine Screen Neg NEGATIVE Urine Cannabinoids Screen Neg NEGATIVE D-Dimer, Quantitative 0.20 0.0-0.49 mg/L FEU Creatine Kinase 135 34-145 U/L Assessment Chest pain, possible cardiac Dyslipidemia Obesity Hypertension * EKGs shows normal sinus rhythm with no significant ST or T-wave changes * Serial trop I and BNP is are within normal limits * Echocardiogram shows normal studies Plan/Recommendation (Case discussed with Dr. Diggs) * Aspirin and atorvastatin * Patient was consulted regarding requirement of stress test (benefits and recommendation), the with the patient denied * We sign of the patient, may follow up with the Cardiology on outpatient basis * Keep K above 4, and Mag above 2 * Rest of plan, per primary team Thank you for allowing us to participate in this patient's care. Please call if you have any questions or concerns. Plan discussed with: Patient, Spouse, Other (RN) CARMEL BAREKR Jan 13, 2025 19:28
== END 2025-01-13 18:28 | disposition home or self-care (01) | DRG 313 ==
LOC: ER 15:26 → OVERFLOW 17:53 → TELE-WESTW 23:45
PROVIDERS: ADMIT Internal Medicine; ATTEND Internal Medicine
DX: R07.89 Other chest pain (principal); E78.5 Hyperlipidemia, unspecified; I10 Essential (primary) hypertension; E66.9 Obesity, unspecified; Z79.82 Long term (current) use of aspirin; Z91.018 Allergy to other foods; Z79.899 Other long term (current) drug therapy; Z68.34 Body mass index [BMI] 34.0-34.9, adult
CPT/HCPCS: 36415; 71045; 80048; 80053; 80307; 81001; 82550; 83880; 84484; 85025; 85379; 93005; 93306; 96361; 96374; G0378